=== PATIENT | female | born 1945 | race Caucasian/White ===

== ENCOUNTER 2016-12-09 10:10 | Outpatient (CLI) ==
[2013-10-16 08:49] VITALS: BMI 25.0
[2016-12-09 13:31] LABS: BASOPHILS % (AUTO) 0.3 % (0.0-3.0); EOSINOPHILS # (AUTO) 0.1 K/ul (0.0-0.7); EOSINOPHILS % (AUTO) 2.3 % (0.0-7.0); HEMATOCRIT 44.5 % (37.0-47.0); HEMOGLOBIN 14.4 g/dl (12.0-16.0); IMMATURE GRANULOCYTE % (AUTO) 0.3 % (0.0-5.0); LYMPHOCYTES # (AUTO) 1.5 K/uL (0.60-3.4); LYMPHOCYTES % (AUTO) 25.3 (10.0-50.0); MEAN CORPUSCULAR HEMOGLOBIN 26.9 pg (27.0-31.0); MEAN CORPUSCULAR HGB CONC 32.4 (31.8-35.4); MEAN CORPUSCULAR VOLUME 83.2 fl (81.0-99.0); MONOCYTES # (AUTO) 0.5 K/uL (0.4-2.0); MONOCYTES % (AUTO) 8.9 (0-10); NEUTROPHILS # (AUTO) 3.8 K/ul (2.0-6.9); NEUTROPHILS % (AUTO) 62.9; PLATELET COUNT 325 10^3/uL (140-440); RED BLOOD COUNT 5.35 10^6/ul (4.20-5.40); WHITE BLOOD COUNT 5.98 K/ul (4.6-10.2)
[2016-12-09 13:51] LABS: ALBUMIN 4.1 g/dL (3.4-5.0); ALBUMIN/GLOBULIN RATIO 1.28; ANION GAP 14.9; BILIRUBIN,TOTAL 0.6 mg/dL (0.00-1.20); BUN/CREATININE RATIO 12.04; CALCIUM 9.8 mg/dL (8.2-10.2); CHOL/HDL RATIO 3.5 (4.5-5.5); CREATININE 0.83 mg/dL (0.60-1.30); POTASSIUM 4.9 mmol/L (3.5-5.10); TOTAL PROTEIN 7.3 g/dL (5.8-8.1)
== END 2016-12-09 10:11 | disposition home or self-care (01) ==
LOC: LAB 10:10
PROVIDERS: ATTEND General Practice
DX: I65.29 Occlusion and stenosis of unspecified carotid artery (principal); R09.89 Other specified symptoms and signs involving the circulatory and respiratory systems; R56.9 Unspecified convulsions; I62.00 Nontraumatic subdural hemorrhage, unspecified; E78.5 Hyperlipidemia, unspecified
CPT/HCPCS: 36415; 80053; 80061; 85025

== ENCOUNTER 2017-05-11 12:03 | Outpatient (CLI) ==
[2013-10-16 08:49] VITALS: BMI 25.0
[2017-05-11 13:01] LABS: BASOPHILS % (AUTO) 0.4 % (0.0-3.0); EOSINOPHILS # (AUTO) 0.2 K/ul (0.0-0.7); EOSINOPHILS % (AUTO) 2.9 % (0.0-7.0); HEMATOCRIT 43.4 % (37.0-47.0); IMMATURE GRANULOCYTE % (AUTO) 0.4 % (0.0-5.0); LYMPHOCYTES # (AUTO) 1.5 K/uL (0.60-3.4); LYMPHOCYTES % (AUTO) 28.6 (10.0-50.0); MEAN CORPUSCULAR HEMOGLOBIN 25.8 pg (27.0-31.0); MEAN CORPUSCULAR HGB CONC 32.3 (31.8-35.4); MEAN CORPUSCULAR VOLUME 80.1 fl (81.0-99.0); MONOCYTES # (AUTO) 0.5 K/uL (0.4-2.0); MONOCYTES % (AUTO) 9.4 (0-10); NEUTROPHILS % (AUTO) 58.3; PLATELET COUNT 297 10^3/uL (140-440); RED BLOOD COUNT 5.42 10^6/ul (4.20-5.40); WHITE BLOOD COUNT 5.21 K/ul (4.6-10.2)
[2017-05-11 13:21] LABS: BILIRUBIN,URINE Negative (NEGATIVE); KETONES,URINE Negative (NEGATIVE); LEUKOCYTE ESTERASE ,URINE Negative (NEGATIVE); NITRITE,URINE Negative (NEGATIVE); PH,URINE 5.5 (5-9); PROTEIN,URINE Negative (NEGATIVE); URINE, BLOOD Negative (NEGATIVE)
[2017-05-11 13:31] LABS: ALBUMIN 3.9 g/dL (3.4-5.0); ALBUMIN/GLOBULIN RATIO 1.22; ANION GAP 15.1; BILIRUBIN,TOTAL 0.62 mg/dL (0.00-1.20); BUN/CREATININE RATIO 17.33; CALCIUM 9.4 mg/dL (8.2-10.2); CHOL/HDL RATIO 3.2 (4.5-5.5); CREATININE 0.75 mg/dL (0.60-1.30); POTASSIUM 4.1 mmol/L (3.5-5.10); TOTAL PROTEIN 7.1 g/dL (5.8-8.1)
[2017-05-11 13:32] LABS: ADD URINE MICROSCOPIC NO
== END 2017-05-11 12:04 | disposition home or self-care (01) ==
LOC: RHC 12:03 → LAB 12:04
PROVIDERS: ATTEND General Practice
DX: E78.5 Hyperlipidemia, unspecified (principal); I65.29 Occlusion and stenosis of unspecified carotid artery; Z79.899 Other long term (current) drug therapy
CPT/HCPCS: 36415; 80053; 80061; 81001; 85025

== ENCOUNTER 2017-06-09 09:10 | Emergency (ER) ==
[2017-06-09 09:19] VITALS: BP 187/90; TEMP 97.9; BMI 27.6
--- NOTE | 2017-06-09 09:56 | DI ---
EXAM: Radiographs, right wrist HISTORY: Right wrist pain. COMPARISON: None available. TECHNIQUE: Three-view. FINDINGS: Bone mineralization is decreased. There is no fracture or dislocation. Moderate osteoar thritic changes of the first ray noted. No focal soft tissue abnormality is seen. IMPRESSION: No fracture or dislocation.
--- NOTE | 2017-06-09 09:57 | DI ---
EXAM: RIGHT HAND, 3 VIEWS HISTORY: Right hand pain FINDINGS: There is relatively diffuse arthropathy, mild for the most part. Slightly greater at the DIP joints and greatest at the first carpal-metacarpal joint where the degree is moderate. The bon es appear slightly demineralized. No acute fracture or dislocation. IMPRESSION: Osteoarthritis most apparent at the first carpal-metacarpal joint.
--- NOTE | 2017-06-09 10:15 | ED.PDOC ---
General ED Provider: Dr. ELFEGO GRIDER Chief Complaint: Hand Pain/Injury Stated Complaint: handpain after a fall right side Time Seen by Physician: 09:14 (seen with jose e and march) Mode of Arrival: Walk-In Information Source: Patient Exam Limitations: No limitations Primary Care Provider: [facility] Nursing and Triage Documentation Reviewed and Agree: Yes (nursing present at all times ) Musculoskeletal Complaint Exam - Hand/Wrist Complaint/Exam Location of Pain: Reports: Right, Hand, Wrist Mechanism of Injury: Reports: Trauma (fall) Onset/Duration: 1 day Symptoms Are: Still present Initial Severity: Mild Current Severity: Mild Location: Reports: Discrete Character: Reports: Aching Alleviating: Reports: Rest Aggravating: Reports: Movement Associated Signs and Symptoms: Denies: Swelling, Redness, Bruising, Fever, Weakness, Numbness, Tingling Differential Diagnoses: Closed Fracture Review of Systems - Review Of Systems Constitutional: Reports: No symptoms Eyes: Reports: No symptoms Ears, Nose, Mouth, Throat: Reports: No symptoms Respiratory: Reports: No symptoms Cardiac: Reports: No symptoms GI: Reports: No symptoms : Reports: No symptoms Musculoskeletal: Reports: Joint pain (hand) Skin: Reports: No symptoms Neurological: Reports: No symptoms Endocrine: Reports: No symptoms Hematologic/Lymphatic: Reports: No symptoms All Other Systems: Reviewed and Negative Past Medical History - Past Medical History Previously Healthy: Yes Endocrine: Reports: Dyslipidemia Cardiovascular: Reports: None Respiratory: Reports: None Hematological: Reports: None Gastrointestinal: Reports: None Genitourinary: Reports: None Neuro/Psych: Reports: Seizure Musculoskeletal: Reports: None Cancer: Reports: None Last Menstrual Period: hysterectomy - Surgical History General Surgical History: Reports: None - Family History Family History: Reports: None - Social History Smoking Status: Former smoker Hx Substance Use: No Alcohol Screening: Occasionally Physical Exam - Physical Exam Appearance: Well-appearing, No pain distress, Well-nourished Eyes: ZAHIRA, EOMI, Conjunctiva clear ENT: Ears normal, Nose normal, Oropharynx normal Respiratory: Airway patent, Breath sounds clear, Breath sounds equal, Respirations nonlabored Cardiovascular: RRR, Pulses normal, No rub, No murmur GI/: Soft, Nontender, No masses, Bowel sounds normal, No Organomegaly Musculoskeletal: Normal strength, ROM intact, No edema, No calf tenderness Skin: Warm, Dry, Normal color Neurological: Sensation intact, Motor intact, Reflexes intact, Cranial nerves intact, Alert, Oriented Psychiatric: Affect appropriate, Mood appropriate Interpretation - Radiology Interpretation Radiology Interpretation By: Radiologist Radiology Results: No acute changes Critical Care Note - Critical Care Note Total Time (mins): 0 Course - Course Orders, Labs, Meds: Orders Category Date Time Status HAND, RIGHT 3 VIEWS Stat RADS 06/09/17 09:20 Ordered WRIST, RIGHT 3 VIEWS Stat RADS 06/09/17 09:20 Ordered Vital Signs: Temp Pulse Resp BP Pulse Ox 06/09/17 09:10 97.9 F 74 20 187/90 H 95 Departure - Departure Time of Disposition: 10:15 Disposition: HOME SELF-CARE Discharge Problem: Pain in right hand, Injury of hand, Hand pain Instructions: Arthralgia (ED) Condition: Good Pt referred to PMD for follow-up: Yes Additional Instructions: Please call your Family Physician as soon as possible to schedule a follow-up appointment. Allergies/Adverse Reactions: Allergies bacitracin Adverse Reaction (Verified 06/09/17 09:22) lanolin alcohols Adverse Reaction (Verified 06/09/17 09:22) Home Medications: Ambulatory Orders Cetirizine HCl [Zyrtec] 10 mg PO QAM 10/16/13
== END 2017-06-09 10:24 | disposition home or self-care (01) ==
LOC: ED 09:10
DX: M79.641 Pain in right hand (principal); M25.531 Pain in right wrist; W19.XXXA Unspecified fall, initial encounter
CPT/HCPCS: 99282

== ENCOUNTER 2017-10-12 16:44 | Outpatient (CLI) ==
[2017-10-12 16:59] LABS: BASOPHILS # (AUTO) 0.1 K/uL (0-0.2); BASOPHILS % (AUTO) 0.6 % (0.0-3.0); EOSINOPHILS # (AUTO) 0.5 K/ul (0.0-0.7); EOSINOPHILS % (AUTO) 5.7 % (0.0-7.0); HEMATOCRIT 41.5 % (37.0-47.0); HEMOGLOBIN 14.2 g/dl (12.0-16.0); IMMATURE GRANULOCYTE % (AUTO) 0.4 % (0.0-5.0); LYMPHOCYTES # (AUTO) 1.5 K/uL (0.60-3.4); LYMPHOCYTES % (AUTO) 18.6 (10.0-50.0); MEAN CORPUSCULAR HEMOGLOBIN 28.6 pg (27.0-31.0); MEAN CORPUSCULAR HGB CONC 34.2 (31.8-35.4); MEAN CORPUSCULAR VOLUME 83.7 fl (81.0-99.0); MONOCYTES # (AUTO) 0.6 K/uL (0.4-2.0); MONOCYTES % (AUTO) 7.4 (0-10); NEUTROPHILS # (AUTO) 5.3 K/ul (2.0-6.9); NEUTROPHILS % (AUTO) 67.3; PLATELET COUNT 334 10^3/uL (140-440); RED BLOOD COUNT 4.96 10^6/ul (4.20-5.40); WHITE BLOOD COUNT 7.85 K/ul (4.6-10.2)
[2017-10-12 17:05] LABS: BILIRUBIN,URINE Negative (NEGATIVE); KETONES,URINE Negative (NEGATIVE); LEUKOCYTE ESTERASE ,URINE Negative (NEGATIVE); NITRITE,URINE Negative (NEGATIVE); PROTEIN,URINE Negative (NEGATIVE); URINE, BLOOD Negative (NEGATIVE)
[2017-10-12 17:07] LABS: ADD URINE MICROSCOPIC NO
[2017-10-12 17:09] LABS: ALBUMIN 3.9 g/dL (3.4-5.0); ALBUMIN/GLOBULIN RATIO 1.26; ANION GAP 15.1; BILIRUBIN,TOTAL 0.35 mg/dL (0.00-1.20); BUN/CREATININE RATIO 14.44; CALCIUM 9.6 mg/dL (8.2-10.2); CHOL/HDL RATIO 4.1 (4.5-5.5); CREATININE 0.9 mg/dL (0.60-1.30); POTASSIUM 4.1 mmol/L (3.5-5.10)
== END 2017-10-12 16:45 | disposition home or self-care (01) ==
LOC: LAB 16:44
PROVIDERS: ATTEND General Practice
DX: D64.9 Anemia, unspecified (principal); I10 Essential (primary) hypertension; Z79.899 Other long term (current) drug therapy
CPT/HCPCS: 36415; 80053; 80061; 81001; 85025

== ENCOUNTER 2018-03-30 12:58 | Outpatient (CLI) | payer OTHER | END 2018-03-30 12:59 | disposition home or self-care (01) | LOC: FCC-LAB 12:58 | PROVIDERS: ATTEND General Practice | DX: M25.472 Effusion, left ankle (principal) | CPT/HCPCS: 36415; 80053; 84550; 85025 ==

== ENCOUNTER 2019-04-20 07:48 | Outpatient (CLI) | payer OTHER | END 2019-04-20 07:49 | disposition home or self-care (01) | LOC: RHC-LAB 07:48 | PROVIDERS: ATTEND General Practice | DX: E78.5 Hyperlipidemia, unspecified (principal); I10 Essential (primary) hypertension; Z79.899 Other long term (current) drug therapy | CPT/HCPCS: 36415; 80053; 80061; 81001; 85025; 87086 ==